=== PATIENT | female | born 1955 | race Caucasian/White ===

== ENCOUNTER 2018-11-17 09:42 | Emergency (ER) | payer BC ==
[~2018-11-17] VITALS: Ht 167.6 cm; Wt 65.8 kg
[2018-11-17 09:55] VITALS: BP 136/72
== END 2018-11-17 10:55 | disposition home or self-care (01) ==
LOC: ER 09:42
DX: J02.9 Acute pharyngitis, unspecified (principal); E78.5 Hyperlipidemia, unspecified